=== PATIENT | female | born 1960 | race African-American/Black ===

== ENCOUNTER 2021-01-20 09:50 | Inpatient (IN) | payer OTHER ==
[~2021-01-20] VITALS: Ht 177.8 cm; Wt 104.4 kg
[2021-01-20] MEDS ORDERED: AZITHROMYCIN 500MG/250ML 250 ML IV ONE (10:45)
[2021-01-20] MEDS ORDERED: CEFTRIAXONE 1 G PREMIX 50 ML IV ONE (10:45)
[2021-01-20] MEDS ORDERED: DEXAMETHASONE 10 MG/ML VIAL IV ONE (12:00)
[2021-01-20 12:10] LABS: HEMATOCRIT. 41.3 % (36.0-48.0); HEMOGLOBIN. 13.8 g/dL (12.0-16.0); MEAN CORPUSCULAR HEMOGLOBIN 28.9 pg (28.0-32.0); MEAN CORPUSCULAR VOLUME 86.5 fL (81.0-99.0); MEAN PLATELET VOLUME 7.1 fl (7.4-10.4); PLATELET 270 x1000/uL (130-400); RED BLOOD CELL COUNT 4.78 mill/uL (4.2-5.4); RED CELL DISTRIBUTION WIDTH 14.8 % (11.6-14.6)
[2021-01-20 12:15] LABS: CHLORIDE 109 mEq/L (98-107)
[2021-01-20 12:23] LABS: CREATINE KINASE 468 IU/L (26-192)
[2021-01-20 12:36] LABS: PLATELET ESTIMATE NORMAL
[2021-01-20 12:51] LABS: D-DIMER 1.34 mg/L FEU (<0.50)
[2021-01-20 12:55] LABS: FIBRINOGEN > 900 mg/dL (200-400)
[2021-01-21] MEDS ORDERED: DEXTROSE 50% WATER 50ML SYRINGE IV PRN (10:15)
[2021-01-21] MEDS ORDERED: ONDANSETRON HCL 4MG/2ML INJ IV PRN (10:15)
[2021-01-21] MEDS ORDERED: ACETAMINOPHEN 325MG TABLET PO PRN (10:15)
[2021-01-21] MEDS: BLOOD SUGAR DIAGNOSTIC STRIP TEST SCH ×4 (11:30→21:57)
[2021-01-21 12:00] VITALS: BP_SYST 122; BP_SYST 124; BP_DIAS 68
[2021-01-21 16:00] VITALS: BP 113/65
[2021-01-21] MEDS: ENOXAPARIN 30MG/0.3ML SYR SUBCUT SCH ×2 (18:04→21:56)
[2021-01-21] MEDS: INSULIN LISPRO 100 UNITS/ML SUBCUT SCH ×2 (18:09→21:47)
[2021-01-21] MEDS: DEXAMETHASONE 10 MG/ML VIAL IV SCH (18:10)
[2021-01-21] MEDS: CEFTRIAXONE 1,000 MG in DEXTROSE 5% WATER 50 ML IV SCH (18:10)
[2021-01-21] MEDS: AZITHROMYCIN 500 MG in DEXT 5% WATER 250 ML IV SCH (18:11)
[2021-01-21] MEDS ORDERED: NIFE-32 PO (19:57)
[2021-01-21] MEDS ORDERED: GLIP5TAB12 PO (19:57)
[2021-01-21 20:00] VITALS: BP 107/64
[2021-01-21] MEDS ORDERED: CYCL10TA7 PO (20:01)
[2021-01-21] MEDS ORDERED: LOSA50TA41 PO (20:01)
[2021-01-21] MEDS ORDERED: METO-411 PO (20:01)
[2021-01-21] MEDS: INSULIN GLARGINE UD 100 UNITS/ML SYR SUBCUT SCH (21:57)
[2021-01-22] VITALS: BP 110/66
[2021-01-22 04:00] VITALS: BP 129/71
[2021-01-22] MEDS: ALBUTEROL 6.7GM HFA INHALER ORI SCH ×5 (06:02→23:33)
[2021-01-22] MEDS: BLOOD SUGAR DIAGNOSTIC STRIP TEST SCH ×4 (07:40→21:40)
[2021-01-22 08:00] VITALS: BP 120/70
[2021-01-22] MEDS: ENOXAPARIN 30MG/0.3ML SYR SUBCUT SCH ×2 (08:27→21:36)
[2021-01-22] MEDS: DEXAMETHASONE 10 MG/ML VIAL IV SCH (08:27)
[2021-01-22] MEDS: INSULIN LISPRO 100 UNITS/ML SUBCUT SCH ×4 (08:31→21:37)
[2021-01-22] MEDS: INSULIN GLARGINE UD 100 UNITS/ML SYR SUBCUT SCH ×2 (10:16→22:04)
[2021-01-22 12:00] VITALS: BP 113/71
[2021-01-22] MEDS: CEFTRIAXONE 1,000 MG in DEXTROSE 5% WATER 50 ML IV SCH (13:18)
[2021-01-22] MEDS: AZITHROMYCIN 500 MG in DEXT 5% WATER 250 ML IV SCH (15:17)
[2021-01-22 16:00] VITALS: BP 148/84
[2021-01-22 20:14] VITALS: BP 149/79
[2021-01-23 00:04] VITALS: BP 137/71
[2021-01-23 04:44] VITALS: BP 134/85
[2021-01-23 05:17] LABS: CHLORIDE 108 mEq/L (98-107)
[2021-01-23] MEDS: ALBUTEROL 6.7GM HFA INHALER ORI SCH ×3 (06:24→19:26)
[2021-01-23 07:03] LABS: HEMOGLOBIN. 12.6 g/dL (12.0-16.0); MEAN CORPUSCULAR HEMOGLOBIN 29.2 pg (28.0-32.0); MEAN PLATELET VOLUME 7.6 fl (7.4-10.4); PLATELET 321 x1000/uL (130-400); RED BLOOD CELL COUNT 4.31 mill/uL (4.2-5.4); RED CELL DISTRIBUTION WIDTH 14.9 % (11.6-14.6)
[2021-01-23 08:00] VITALS: BP 147/74
[2021-01-23] MEDS: BLOOD SUGAR DIAGNOSTIC STRIP TEST SCH ×4 (08:07→20:59)
[2021-01-23] MEDS: ENOXAPARIN 30MG/0.3ML SYR SUBCUT SCH ×2 (08:40→20:59)
[2021-01-23] MEDS: DEXAMETHASONE 10 MG/ML VIAL IV SCH (08:41)
[2021-01-23] MEDS: INSULIN LISPRO 100 UNITS/ML SUBCUT SCH ×4 (08:46→21:00)
[2021-01-23] MEDS: INSULIN GLARGINE UD 100 UNITS/ML SYR SUBCUT SCH ×2 (10:14→21:05)
[2021-01-23 11:47] LABS: PLATELET ESTIMATE NORMAL
[2021-01-23 12:00] VITALS: BP 152/82
[2021-01-23] MEDS: CEFTRIAXONE 1,000 MG in DEXTROSE 5% WATER 50 ML IV SCH (13:53)
[2021-01-23] MEDS: AZITHROMYCIN 500 MG in DEXT 5% WATER 250 ML IV SCH (14:46)
[2021-01-23 16:00] VITALS: BP 141/75
[2021-01-23 20:00] VITALS: BP 151/75
[2021-01-24 00:05] VITALS: BP 136/64
[2021-01-24] MEDS: ALBUTEROL 6.7GM HFA INHALER ORI SCH ×5 (00:09→23:11)
[2021-01-24 04:00] VITALS: BP 120/53
[2021-01-24] MEDS: BLOOD SUGAR DIAGNOSTIC STRIP TEST SCH ×4 (07:40→21:59)
[2021-01-24 08:00] VITALS: BP 131/63
[2021-01-24] MEDS: INSULIN LISPRO 100 UNITS/ML SUBCUT SCH ×4 (08:10→23:10)
[2021-01-24] MEDS: INSULIN GLARGINE UD 100 UNITS/ML SYR SUBCUT SCH ×2 (09:36→23:11)
[2021-01-24] MEDS: DEXAMETHASONE 10 MG/ML VIAL IV SCH (09:36)
[2021-01-24] MEDS: ENOXAPARIN 30MG/0.3ML SYR SUBCUT SCH ×2 (09:38→23:10)
[2021-01-24] MEDS: CEFTRIAXONE 1,000 MG in DEXTROSE 5% WATER 50 ML IV SCH (11:06)
[2021-01-24 12:00] VITALS: BP 146/67
[2021-01-24] MEDS: AZITHROMYCIN 500 MG in DEXT 5% WATER 250 ML IV SCH (14:14)
[2021-01-24 16:00] VITALS: BP 150/79
[2021-01-24 20:00] VITALS: BP 149/73
[2021-01-25] VITALS: BP 145/58
[2021-01-25 04:00] VITALS: BP 137/70
[2021-01-25] MEDS: ALBUTEROL 6.7GM HFA INHALER ORI SCH ×4 (06:14→21:16)
[2021-01-25] MEDS: BLOOD SUGAR DIAGNOSTIC STRIP TEST SCH ×4 (06:56→21:16)
[2021-01-25 08:00] VITALS: BP 139/61
[2021-01-25] MEDS: INSULIN LISPRO 100 UNITS/ML SUBCUT SCH ×4 (08:10→21:15)
[2021-01-25] MEDS: ENOXAPARIN 30MG/0.3ML SYR SUBCUT SCH ×2 (09:10→21:15)
[2021-01-25] MEDS: DEXAMETHASONE 10 MG/ML VIAL IV SCH (09:10)
[2021-01-25] MEDS: INSULIN GLARGINE UD 100 UNITS/ML SYR SUBCUT SCH ×2 (09:14→21:16)
[2021-01-25] MEDS: CEFTRIAXONE 1,000 MG in DEXTROSE 5% WATER 50 ML IV SCH (11:14)
[2021-01-25 12:00] VITALS: BP 139/68
[2021-01-25] MEDS: ASPIRIN 81MG TABLET PO SCH (15:20)
[2021-01-25 16:00] VITALS: BP 148/67
[2021-01-25 20:00] VITALS: BP 153/71
[2021-01-26] VITALS: BP 146/65
[2021-01-26 04:00] VITALS: BP 141/59
[2021-01-26] MEDS: ALBUTEROL 6.7GM HFA INHALER ORI SCH ×3 (05:50→17:46)
[2021-01-26] MEDS: BLOOD SUGAR DIAGNOSTIC STRIP TEST SCH ×4 (06:25→20:37)
[2021-01-26 08:00] VITALS: BP 146/72
[2021-01-26] MEDS: INSULIN LISPRO 100 UNITS/ML SUBCUT SCH ×4 (08:01→20:47)
[2021-01-26] MEDS: DEXAMETHASONE 10 MG/ML VIAL IV SCH (08:02)
[2021-01-26] MEDS: ASPIRIN 81MG TABLET PO SCH (08:02)
[2021-01-26] MEDS: ENOXAPARIN 30MG/0.3ML SYR SUBCUT SCH ×2 (08:02→20:35)
[2021-01-26] MEDS: INSULIN GLARGINE UD 100 UNITS/ML SYR SUBCUT SCH ×2 (10:02→21:20)
[2021-01-26 12:00] VITALS: BP 156/74
[2021-01-26] MEDS: CEFTRIAXONE 1,000 MG in DEXTROSE 5% WATER 50 ML IV SCH (12:11)
[2021-01-26 16:00] VITALS: BP 139/78
[2021-01-26 20:00] VITALS: BP 153/76
[2021-01-27] VITALS: BP 136/60
[2021-01-27] MEDS: ALBUTEROL 6.7GM HFA INHALER ORI SCH ×4 (00:06→17:29)
[2021-01-27 04:00] VITALS: BP 121/81
[2021-01-27] MEDS: BLOOD SUGAR DIAGNOSTIC STRIP TEST SCH ×4 (06:00→21:24)
[2021-01-27 08:00] VITALS: BP 157/69
[2021-01-27] MEDS: INSULIN LISPRO 100 UNITS/ML SUBCUT SCH ×4 (08:00→21:25)
[2021-01-27] MEDS: DEXAMETHASONE 10 MG/ML VIAL IV SCH (08:17)
[2021-01-27] MEDS: GUAIFENESIN-DM 200MG-20MG/10ML UDC PO PRN (08:17)
[2021-01-27] MEDS: ENOXAPARIN 30MG/0.3ML SYR SUBCUT SCH ×2 (08:18→21:24)
[2021-01-27] MEDS: ASPIRIN 81MG TABLET PO SCH (08:18)
[2021-01-27] MEDS: INSULIN GLARGINE UD 100 UNITS/ML SYR SUBCUT SCH ×2 (11:23→21:29)
[2021-01-27 12:00] VITALS: BP 156/81
[2021-01-27 16:00] VITALS: BP 148/52
[2021-01-27 20:00] VITALS: BP 150/59
[2021-01-28] VITALS: BP 119/49
[2021-01-28] MEDS: ALBUTEROL 6.7GM HFA INHALER ORI SCH ×4 (00:24→17:03)
[2021-01-28 04:00] VITALS: BP 136/49
[2021-01-28] MEDS: BLOOD SUGAR DIAGNOSTIC STRIP TEST SCH ×4 (06:08→21:19)
[2021-01-28 08:00] VITALS: BP 117/55
[2021-01-28] MEDS: INSULIN LISPRO 100 UNITS/ML SUBCUT SCH ×4 (08:10→21:18)
[2021-01-28] MEDS: ENOXAPARIN 30MG/0.3ML SYR SUBCUT SCH ×2 (08:16→21:11)
[2021-01-28] MEDS: DEXAMETHASONE 10 MG/ML VIAL IV SCH (08:16)
[2021-01-28] MEDS: ASPIRIN 81MG TABLET PO SCH (08:16)
[2021-01-28] MEDS: INSULIN GLARGINE UD 100 UNITS/ML SYR SUBCUT SCH ×2 (09:40→21:19)
[2021-01-28 12:00] VITALS: BP 145/66
[2021-01-28] MEDS: GUAIFENESIN-DM 200MG-20MG/10ML UDC PO PRN (12:23)
[2021-01-28 16:00] VITALS: BP 124/59
[2021-01-28 20:00] VITALS: BP 124/73
[2021-01-29] VITALS: BP 130/50
[2021-01-29] MEDS: ALBUTEROL 6.7GM HFA INHALER ORI SCH ×5 (00:46→23:49)
[2021-01-29 04:00] VITALS: BP 152/59
[2021-01-29] MEDS: BLOOD SUGAR DIAGNOSTIC STRIP TEST SCH ×4 (06:51→21:12)
[2021-01-29 08:00] VITALS: BP 125/66
[2021-01-29] MEDS: INSULIN LISPRO 100 UNITS/ML SUBCUT SCH ×4 (08:10→21:12)
[2021-01-29] MEDS: GUAIFENESIN-DM 200MG-20MG/10ML UDC PO PRN ×3 (09:29→17:26)
[2021-01-29] MEDS: ASPIRIN 81MG TABLET PO SCH (09:30)
[2021-01-29] MEDS: DEXAMETHASONE 10 MG/ML VIAL IV SCH (09:30)
[2021-01-29] MEDS: ENOXAPARIN 30MG/0.3ML SYR SUBCUT SCH ×2 (09:30→21:11)
[2021-01-29] MEDS: INSULIN GLARGINE UD 100 UNITS/ML SYR SUBCUT SCH ×2 (09:41→21:12)
[2021-01-29 12:00] VITALS: BP 147/65
[2021-01-29 12:15] LABS: BG BASE EXCESS -1.7 mmol/L (-2.0-2.0); BG CARBOXYHEMOGLOBIN 0.1 % (0.5-1.5); BG DEOXYHEMOGLOBIN 11.2 % (0.0-5.0); BG FRACTION INSPIRED OXYGEN 21; BG HCO3 ACT 23.5 mmol/L (22.0-26.0); BG METHEMOGLOBIN 0.3 % (0.0-1.5); BG OXYGEN SATURATION 88.8 % (92.0-98.5); BG OXYHEMOGLOBIN 88.4 % (94.0-97.0); BG PCO2 41.4 mmHg (35.0-45.0); BG PH 7.372 (7.350-7.450); BG PO2 55.7 mmHg (75.0-100.0); BG SAMPLE SITE RIGHT RADIAL; BG TOTAL HEMOGLOBIN 13.8 g/dL (12.0-18.0); BG VENT MODE ROOM AIR
[2021-01-29 16:00] VITALS: BP 136/68
[2021-01-29 20:00] VITALS: BP 140/56
[2021-01-30] VITALS: BP 118/50
[2021-01-30 04:00] VITALS: BP 140/88
[2021-01-30] MEDS: BLOOD SUGAR DIAGNOSTIC STRIP TEST SCH ×4 (06:13→21:36)
[2021-01-30] MEDS: ALBUTEROL 6.7GM HFA INHALER ORI SCH ×3 (06:13→17:33)
[2021-01-30 08:00] VITALS: BP 140/75
[2021-01-30] MEDS: ASPIRIN 81MG TABLET PO SCH (08:02)
[2021-01-30] MEDS: ENOXAPARIN 30MG/0.3ML SYR SUBCUT SCH ×2 (08:02→21:46)
[2021-01-30] MEDS: DEXAMETHASONE 10 MG/ML VIAL IV SCH (08:02)
[2021-01-30] MEDS: GUAIFENESIN-DM 200MG-20MG/10ML UDC PO PRN ×2 (08:02→13:07)
[2021-01-30] MEDS: INSULIN LISPRO 100 UNITS/ML SUBCUT SCH ×4 (08:05→21:48)
[2021-01-30] MEDS: INSULIN GLARGINE UD 100 UNITS/ML SYR SUBCUT SCH ×2 (09:33→21:48)
[2021-01-30 10:36] LABS: BASOPHILS % 0.1 % (0.0-2.0); EOSINOPHILS % 0.1 % (0.0-5.0); HEMATOCRIT. 39.7 % (36.0-48.0); HEMOGLOBIN. 13.1 g/dL (12.0-16.0); LYMPHOCYTES % 7.3 % (20.0-50.0); MEAN CORPUSCULAR HEMOGLOBIN 28.6 pg (28.0-32.0); MEAN PLATELET VOLUME 7.8 fl (7.4-10.4); MONOCYTES % 9.1 % (2.0-8.0); NEUTROPHILS % 83.4 % (40.0-76.0); PLATELET 266 x1000/uL (130-400); RED BLOOD CELL COUNT 4.56 mill/uL (4.2-5.4); RED CELL DISTRIBUTION WIDTH 14.4 % (11.6-14.6)
[2021-01-30 10:43] LABS: CHLORIDE 112 mEq/L (98-107)
[2021-01-30 12:00] VITALS: BP 161/70
[2021-01-30 16:00] VITALS: BP 150/70
[2021-01-30 20:00] VITALS: BP 143/54
[2021-01-31] VITALS (7 sets, daily range): BP systolic 111–168; BP diastolic 57–80
[2021-01-31] MEDS: ALBUTEROL 6.7GM HFA INHALER ORI SCH ×2 (00:29→06:00)
[2021-01-31] MEDS: BLOOD SUGAR DIAGNOSTIC STRIP TEST SCH ×4 (07:10→21:30)
[2021-01-31] MEDS: ENOXAPARIN 30MG/0.3ML SYR SUBCUT SCH ×2 (09:45→21:28)
[2021-01-31] MEDS: ASPIRIN 81MG TABLET PO SCH (09:45)
[2021-01-31] MEDS: DEXAMETHASONE 10 MG/ML VIAL IV SCH (09:45)
[2021-01-31] MEDS: INSULIN LISPRO 100 UNITS/ML SUBCUT SCH ×4 (09:48→21:29)
[2021-01-31] MEDS: INSULIN GLARGINE UD 100 UNITS/ML SYR SUBCUT SCH ×2 (09:48→21:29)
[2021-02-01] VITALS: BP 122/50
[2021-02-01 04:00] VITALS: BP 153/73
[2021-02-01] MEDS: BLOOD SUGAR DIAGNOSTIC STRIP TEST SCH ×4 (06:42→21:33)
[2021-02-01] MEDS: INSULIN LISPRO 100 UNITS/ML SUBCUT SCH ×4 (06:42→21:32)
[2021-02-01 08:00] VITALS: BP 100/60
[2021-02-01] MEDS: ASPIRIN 81MG TABLET PO SCH (09:50)
[2021-02-01] MEDS: ENOXAPARIN 30MG/0.3ML SYR SUBCUT SCH ×2 (09:50→21:32)
[2021-02-01] MEDS: INSULIN GLARGINE UD 100 UNITS/ML SYR SUBCUT SCH ×2 (10:25→21:33)
[2021-02-01 12:00] VITALS: BP 127/68
[2021-02-01 16:00] VITALS: BP 139/62
[2021-02-01 20:00] VITALS: BP 93/53
[2021-02-02] VITALS: BP 123/61
[2021-02-02 04:00] VITALS: BP 94/53
[2021-02-02] MEDS: INSULIN LISPRO 100 UNITS/ML SUBCUT SCH ×4 (06:05→21:56)
[2021-02-02] MEDS: BLOOD SUGAR DIAGNOSTIC STRIP TEST SCH ×4 (06:05→21:55)
[2021-02-02 08:00] VITALS: BP 131/84
[2021-02-02] MEDS: ASPIRIN 81MG TABLET PO SCH (08:33)
[2021-02-02] MEDS: ENOXAPARIN 30MG/0.3ML SYR SUBCUT SCH ×2 (08:34→21:55)
[2021-02-02] MEDS: INSULIN GLARGINE UD 100 UNITS/ML SYR SUBCUT SCH ×2 (09:56→21:57)
[2021-02-02 12:00] VITALS: BP 124/55
[2021-02-02 16:00] VITALS: BP 141/65
[2021-02-02 20:00] VITALS: BP 124/57
[2021-02-03] VITALS: BP 146/73
[2021-02-03 04:00] VITALS: BP 104/66
[2021-02-03] MEDS: BLOOD SUGAR DIAGNOSTIC STRIP TEST SCH ×2 (06:48→12:10)
[2021-02-03] MEDS: INSULIN LISPRO 100 UNITS/ML SUBCUT SCH ×2 (06:48→12:40)
[2021-02-03 08:00] VITALS: BP 129/53
[2021-02-03] MEDS: ENOXAPARIN 30MG/0.3ML SYR SUBCUT SCH (08:38)
[2021-02-03 09:41] VITALS: BP 129/53
[2021-02-03] MEDS: INSULIN GLARGINE UD 100 UNITS/ML SYR SUBCUT SCH (10:00)
[2021-02-03] MEDS: ASPIRIN 81MG TABLET PO SCH (10:49)
== END 2021-02-03 17:50 | disposition home health service (06) | DRG 720 ==
LOC: ER 10:09 → EDBEDREQTM 19:51 → MICUSO 01-21 03:05 → 7WST 01-21 11:34 → 8WST 01-31 05:58
PROVIDERS: ADMIT Internal Medicine; ATTEND Internal Medicine
DX: A41.89 Other specified sepsis (principal); J96.01 Acute respiratory failure with hypoxia; J12.82 Pneumonia due to coronavirus disease 2019; N17.0 Acute kidney failure with tubular necrosis; U07.1 COVID-19; E44.0 Moderate protein-calorie malnutrition; E11.22 Type 2 diabetes mellitus with diabetic chronic kidney disease; E66.9 Obesity, unspecified; E78.5 Hyperlipidemia, unspecified; E87.8 Other disorders of electrolyte and fluid balance, not elsewhere classified; I12.9 Hypertensive chronic kidney disease with stage 1 through stage 4 chronic kidney disease, or unspecified chronic kidney disease; N18.9 Chronic kidney disease, unspecified; R65.20 Severe sepsis without septic shock; R74.01 Elevation of levels of liver transaminase levels; Z68.33 Body mass index [BMI] 33.0-33.9, adult
CPT/HCPCS: 36415; 36600; 71045; 80048; 80053; 82375; 82550; 82805; 82962; 83605; 83615; 83880; 84145; 84484; 85025; 85379; 85384; 86140; 87426; 93005; 93970; 94618; 97116; 97162; 97165; 97530; 97535; 99291; C1893; J0456; J0696; J1100; J1650; J1815; J7040; J7060; U0003; U0005